=== PATIENT | male | born 1955 | race Caucasian/White ===

== ENCOUNTER 2021-01-26 23:37 | Inpatient (IN) | payer MEDICARE, OTHER ==
[~2021-01-26] VITALS: Ht 198.1 cm; Wt 93.9 kg
--- NOTE | 2021-01-27 00:19 | NUR ---
66 y/o male bib RA90 for generalized body aches/pain & dehydration. No medical hx & no home meds. Apparently a homeless man. A&Ox4. Calm and cooperative. Able to make needs known. No neurological deficits. PERRLA. No SI/HI/AH/VH. Desheveled appearance. Dry cough noted. Nsr + sinus tach. HR77 as of this note. BP 123/79 on arrival. No cp, no palpitations, no diaphoresis, no murmurs. No signs of edema. Pulses equal bilaterally. Febrile (99.7). Saturations >94% on room air as of this note. sob on exertion. no labored breathing. GI/: Continent. hypoactive bowel sounds. 7-8 episodes of emesis over the last couple days - previously constipatted but bowels have started moving again. LLQ pain + guarding. Loos of appetite. Complaints of urinary hesistency, dysuria, oliguria, and dark "wood" colored urine.
[2021-01-27 00:42] LABS: CREATININE 1.1 mg/dL (0.6-1.3); POTASSIUM 3.3 mmol/L (3.5-5.1)
--- NOTE | 2021-01-27 00:45 | NUR ---
Barber Quinn ([facility]) - [phone]
[2021-01-27 00:46] LABS: HEMATOCRIT 41.7 % (36.7-47.1); MEAN CORPUSCULAR HEMOGLOBIN 29.8 uug (23.8-33.4); PLATELET COUNT (AUTO) 182 K/uL (152-348)
[2021-01-27 00:48] LABS: BILIRUBIN,DIRECT 0.2 mg/dL (0.0-0.2); BILIRUBIN,TOTAL 0.7 mg/dL (0.2-1.0); TOTAL PROTEIN, SERUM 6.8 g/dL (6.4-8.2)
[2021-01-27] MEDS ORDERED: DEXAMETHASONE SOD PHOSPHATE 10 MG INJ ONE ×2 (00:59→01:03)
[2021-01-27] MEDS ORDERED: POTASSIUM BICARBONATE/CIT AC 25 MEQ TABLET.EFF ONE (01:00)
[2021-01-27] MEDS ORDERED: IV NS 1000 ML 1,000 ML IV ONE ×2 (01:00)
[2021-01-27] MEDS ORDERED: DEXAMETHASONE SOD PHOSPHATE 4 MG INJ IV ONE (01:00)
[2021-01-27] MEDS ORDERED: POTASSIUM BICARBONATE/CIT AC 25 MEQ TABLET.EFF PO ONE (01:00)
--- NOTE | 2021-01-27 01:19 | NUR ---
Call for bed - Room 316
--- NOTE | 2021-01-27 02:02 | NUR ---
Patient is COVID+ per Otis from lab
[2021-01-27 02:22] LABS: *BILIRUBIN,URIN 1+ (NEGATIVE); *BLOOD, URINE NEGATIVE (NEGATIVE); *CLARITY,URINE CLEAR (CLEAR); *COLOR,URINE AMBER (YELLOW); *KETONES,URINE TRACE (NEGATIVE); LEUKOCYTE ESTERASE ,URINE NEGATIVE (NEGATIVE); NITRITE, URINE NEGATIVE (NEGATIVE); PH,URINE 6.5 (5.0-8.0); UGLUCOSE NEGATIVE (NEGATIVE)
[2021-01-27 02:31] LABS: BACTERIA,URINE NONE SEEN /HPF (NONE SEEN); MUCUS,URINE MODERATE /LPF (0-FEW); RBC,URINE 0-3 /HPF (0-3); SQUAMOUS EPITHELIAL CELL,UR FEW /HPF (NONE SEEN); WBC,URINE 0-3 /HPF (0-3)
[2021-01-27] MEDS ORDERED: KETOROLAC TROMETHAMINE 30 MG INJ ONE (02:34)
--- NOTE | 2021-01-27 03:02 | NUR ---
Unable to give report at this time - 3rd floor will call back when ready
--- NOTE | 2021-01-27 04:30 | NUR ---
Pt. admitted to 316 telemetry, under care of Dr. Golden. Dx of Covid .On RA saturating @ 96-97%, No SOB noted, No s/s of distress noted. IV on left Forearm 18g patent and intact. Skin assessment done,No skin breakdown. patient resting comfortably in bed. Safety measures and Covid isolation maintained. Call light with in reach .Will continue to monitor. Belongs List completed and placed in chart.
[2021-01-27 05:06] VITALS: BP 98/64
--- NOTE | 2021-01-27 05:25 | NUR ---
Patient transferred up to TELE floor - Room 316 - Under the care of Mckenzie BENNETT & Dr. Olivier All belongings with patient. VSS. Report given.
[2021-01-27] MEDS ORDERED: KETOROLAC TROMETHAMINE 15 MG INJ IVP PRN (06:45)
[2021-01-27] MEDS ORDERED: ONDANSETRON 4 MG/2 ML VIAL IV PRN (06:45)
[2021-01-27] MEDS ORDERED: MAGNESIUM HYDROXIDE 30 ML LIQUID UDC PO PRN (06:45)
--- NOTE | 2021-01-27 07:00 | NUR ---
received patient in bed awake. HOB elevated, no complains of SOB, pain or discomfort at this time. patient saturation at 96% on room air at this time. IV patent and intact. call light and belongings within reach. safety precautions in place. will continue to monitor.
[2021-01-27] MEDS: AZITHROMYCIN IV 500 MG in IV DEXTROSE 5% 250 ML IV SCH (08:24)
[2021-01-27] MEDS: ENOXAPARIN SODIUM 40 MG/0.4 ML DISP.SYRIN SQ SCH (08:25)
[2021-01-27] MEDS: PANTOPRAZOLE SODIUM 40 MG TABLET.DR PO SCH (08:26)
[2021-01-27] MEDS: DEXAMETHASONE SOD PHOSPHATE 4 MG INJ IV SCH (08:26)
[2021-01-27] MEDS ORDERED: CHOLECALCIFEROL 1,000 UNIT TABLET PO SCH (09:00)
[2021-01-27] MEDS: POTASSIUM CHLORIDE 20 MEQ in IV NS 1000 ML 1,000 ML IV PRN ×2 (10:25→23:12)
[2021-01-27 12:00] VITALS: BP 97/69
[2021-01-27] MEDS ORDERED: CEFTRIAXONE 2 G in IV DEXTROSE 5% 100 ML IV SCH (13:00)
[2021-01-27] MEDS: CEFTRIAXONE 1 G in IV DEXTROSE 5% 50 ML IV SCH (13:29)
[2021-01-27 16:00] VITALS: BP 115/72
--- NOTE | 2021-01-27 18:25 | NUR ---
patient in bed in stable condition. no complains of any SOB, pain or discomfort at this time. call light within reach. IV intact and patent running KCL 20meq in NS @ 80ml/hr. call light and belongings kept within reach. safety precautions in place. will report to oncoming nurse.
[2021-01-27 20:00] VITALS: BP 116/76
--- NOTE | 2021-01-27 23:10 | NUR ---
Received pt resting in bed. AAO x4. On room air, no acute distress noted. Denies pain/ discomfort. IVF @ 80 cc/hr. Safety measures maintained. Call light within reach. Will continue to monitor.
[2021-01-28 00:04] VITALS: BP 116/72
[2021-01-28] MEDS: ACETAMINOPHEN 325 MG TABLET PO PRN ×3 (02:24→21:20)
[2021-01-28 04:00] VITALS: BP 92/65
[2021-01-28] MEDS: PANTOPRAZOLE SODIUM 40 MG TABLET.DR PO SCH (06:05)
[2021-01-28] MEDS: ENOXAPARIN SODIUM 40 MG/0.4 ML DISP.SYRIN SQ SCH (06:21)
[2021-01-28 06:43] LABS: HEMATOCRIT 35.4 % (36.7-47.1); MEAN CORPUSCULAR HEMOGLOBIN 30.4 uug (23.8-33.4); MEAN CORPUSCULAR VOLUME 87.7 fL (73.0-96.2); PLATELET COUNT (AUTO) 169 K/uL (152-348)
[2021-01-28 07:21] LABS: BILIRUBIN,TOTAL 0.4 mg/dL (0.2-1.0); CREATININE 1.1 mg/dL (0.6-1.3); MAGNESIUM 1.9 mg/dL (1.8-2.4); POTASSIUM 3.7 mmol/L (3.5-5.1); TOTAL PROTEIN, SERUM 5.4 g/dL (6.4-8.2)
--- NOTE | 2021-01-28 07:30 | NUR ---
Patient resting in bed. AOx4. On room air. No signs of acute distress. Patient denies pain/ discomfort at this time. Patient with left forearm #20 IV access with Kcl 20mEq running at 80cc/hr. Call light within reach. Will continue to monitor.
[2021-01-28] MEDS: AZITHROMYCIN IV 500 MG in IV DEXTROSE 5% 250 ML IV SCH (08:00)
[2021-01-28] MEDS: DEXAMETHASONE SOD PHOSPHATE 4 MG INJ IV SCH (08:23)
[2021-01-28] MEDS ORDERED: CHOLECALCIFEROL 1,000 UNIT TABLET PO SCH (09:00)
[2021-01-28 11:39] VITALS: BP 111/72
[2021-01-28] MEDS ORDERED: ALBUTEROL SULFATE 2.5 MG/3 ML NEBU NEB PRN (12:15)
[2021-01-28] MEDS ORDERED: IPRATROPIUM BROMIDE 0.5 MG/2.5 ML NEBU NEB PRN (12:15)
[2021-01-28] MEDS: CEFTRIAXONE 1 G in IV DEXTROSE 5% 50 ML IV SCH (13:58)
[2021-01-28] MEDS ORDERED: NEUTRA PHOS PACKET PO ONE (15:30)
[2021-01-28 15:54] VITALS: BP 114/74
--- NOTE | 2021-01-28 18:52 | NUR ---
Patient resting in bed. AOx4. On room air, saturating at 97%. No signs of acute distress. Patient denies pain/ discomfort at this time. Patient compliant with medications and care. Needs anticipated and provided. Safety measures provided. Will endorse to incoming shift for continuity of care.
[2021-01-28 20:00] VITALS: BP 113/70
--- NOTE | 2021-01-28 20:15 | NUR ---
Received patient asleep on bed. AOx4, able to make needs known. Saturating at 95% on room air. IV line on L forearm, flushed and still intact. Occasional non-productive coughing noted. Tylenol PRN given for headache. All needs attended. Safety measures provided. Call light placed within reach. Routine visual checks done. Will continue to monitor.
[2021-01-29] VITALS: BP 111/68
[2021-01-29 04:00] VITALS: BP 100/70
[2021-01-29] MEDS: PANTOPRAZOLE SODIUM 40 MG TABLET.DR PO SCH (06:02)
[2021-01-29] MEDS: ENOXAPARIN SODIUM 40 MG/0.4 ML DISP.SYRIN SQ SCH (06:02)
--- NOTE | 2021-01-29 06:41 | NUR ---
Patient slept throughout the night, easily arousable and able to make needs known. Saturating at 97% on room air. Denies pain and discomfort at this time. All needs attended. Safety measures provided. Call light placed within reach. Routine visual checks done. Will endorsed to next shift for continuity of care.
[2021-01-29] MEDS: ACETAMINOPHEN 325 MG TABLET PO PRN ×2 (06:59→22:44)
[2021-01-29 07:31] LABS: HEMATOCRIT 35.6 % (36.7-47.1); MEAN CORPUSCULAR HEMOGLOBIN 31.3 uug (23.8-33.4); MEAN CORPUSCULAR VOLUME 88.1 fL (73.0-96.2); PLATELET COUNT (AUTO) 191 K/uL (152-348)
[2021-01-29 07:44] LABS: CREATININE 0.9 mg/dL (0.6-1.3); PHOSPHOROUS 2.6 mg/dL (2.5-4.9); POTASSIUM 3.6 mmol/L (3.5-5.1)
[2021-01-29] MEDS ORDERED: AZITHROMYCIN 250 MG TABLET PO SCH (09:00)
[2021-01-29] MEDS: DEXAMETHASONE SOD PHOSPHATE 4 MG INJ IV SCH (09:38)
[2021-01-29] MEDS ORDERED: IPRATROPIUM/ALBUTEROL SULFATE 14.7 GM INHALER INH PRN (11:00)
[2021-01-29 12:00] VITALS: BP 113/60
[2021-01-29] MEDS: CEFTRIAXONE 1 G in IV DEXTROSE 5% 50 ML IV SCH (12:03)
[2021-01-29 16:25] VITALS: BP 132/81
--- NOTE | 2021-01-29 18:13 | NUR ---
End of Shift Note Patient no c/o of pain/discomfort noted. Patient ATB oral and IV discontinue by MICHELLE Wahl. Patient continue on room air, saturating 96%, not in distress. will continue monitor
--- NOTE | 2021-01-29 20:00 | NUR ---
RECEIVED PATIENT AWAKE IN BED. ON ISOLATION FOR COVID. A/O X4. DENIES ANY PAIN OR DISCOMFORT. NO RESP. DISTRESS NOTED. DENIES ANY SOB. VS WNL. AFEBRILE. ON TELE SR. H/L INTACT AND PATENT, NOTED TO LEFT FA #20 GAUGE. CALL LIGHT IN REACH. ALL NEEDS ATTENDED. WILL CONTINUE TO MONITOR AND ASSESS.
[2021-01-29 20:34] VITALS: BP 115/71
[2021-01-30 00:28] VITALS: BP 109/70
[2021-01-30 04:32] VITALS: BP 103/69
[2021-01-30] MEDS: PANTOPRAZOLE SODIUM 40 MG TABLET.DR PO SCH (06:24)
[2021-01-30] MEDS: ENOXAPARIN SODIUM 40 MG/0.4 ML DISP.SYRIN SQ SCH (06:24)
--- NOTE | 2021-01-30 06:48 | NUR ---
PATIENT SLEPT WELL. NO C/O PAIN. VSS. ON TELE SR. CALL LIGHT IN REACH. ALL NEEDS ATTENDED. WILL CONTINUE TO MONITOR AND ASSESS.
--- NOTE | 2021-01-30 07:00 | NUR ---
Received pt resting in bed. AAO x4. On room air, no acute distress noted. Denies pain/ discomfort. Call light within reach. Will continue to monitor.
[2021-01-30] MEDS: DEXAMETHASONE SOD PHOSPHATE 4 MG INJ IV SCH (08:02)
[2021-01-30 11:10] VITALS: BP 110/67
[2021-01-30 15:29] VITALS: BP 121/78
[2021-01-30 20:21] VITALS: BP 122/79
[2021-01-30] MEDS: ACETAMINOPHEN 325 MG TABLET PO PRN (21:01)
--- NOTE | 2021-01-30 21:41 | NUR ---
patient in bed in stable condition. no complains of any SOB, pain or discomfort at this time. call light within reach. IV intact and patent call light WITH IN REACH safety precautions in place. will CONTINUE TO MONITORS
[2021-01-30] MEDS: BENZOCAINE/MENTH/CETYLPYRD LOZENGE MM PRN (22:58)
[2021-01-30] MEDS: GUAIFENESIN/DEXTROMETHORPHAN 5 ML UDC PO PRN (22:59)
[2021-01-31 00:06] VITALS: BP 126/81
[2021-01-31 04:21] VITALS: BP 123/80
[2021-01-31] MEDS: PANTOPRAZOLE SODIUM 40 MG TABLET.DR PO SCH (06:10)
[2021-01-31] MEDS: ENOXAPARIN SODIUM 40 MG/0.4 ML DISP.SYRIN SQ SCH (06:11)
[2021-01-31 08:22] LABS: HEMATOCRIT 37.6 % (36.7-47.1); MEAN CORPUSCULAR HEMOGLOBIN 30.4 uug (23.8-33.4); MEAN CORPUSCULAR VOLUME 87.7 fL (73.0-96.2); PLATELET COUNT (AUTO) 287 K/uL (152-348)
--- NOTE | 2021-01-31 08:30 | NUR ---
Pt is in no acute distress. PT on R/A. 02 sat 95%. Encourage pt to use IS x 10 WA. Call light is within reach.
[2021-01-31 08:37] LABS: CREATININE 0.9 mg/dL (0.6-1.3); MAGNESIUM 2.3 mg/dL (1.8-2.4); PHOSPHOROUS 2.8 mg/dL (2.5-4.9); POTASSIUM 4.1 mmol/L (3.5-5.1)
[2021-01-31] MEDS: GUAIFENESIN/DEXTROMETHORPHAN 5 ML UDC PO PRN ×2 (08:48→19:50)
[2021-01-31] MEDS: DEXAMETHASONE SOD PHOSPHATE 4 MG INJ IV SCH (08:49)
[2021-01-31 12:00] VITALS: BP 116/74
[2021-01-31 16:00] VITALS: BP 115/77
--- NOTE | 2021-01-31 18:41 | NUR ---
Pt is in no acute distress. Call light is within reach.
[2021-01-31] MEDS: BENZOCAINE/MENTH/CETYLPYRD LOZENGE MM PRN (19:50)
[2021-01-31] MEDS: ACETAMINOPHEN 325 MG TABLET PO PRN (19:50)
[2021-01-31 20:25] VITALS: BP 123/79
[2021-02-01 00:15] VITALS: BP 103/79
[2021-02-01 04:25] VITALS: BP 117/73
[2021-02-01] MEDS: PANTOPRAZOLE SODIUM 40 MG TABLET.DR PO SCH (06:03)
[2021-02-01] MEDS: ENOXAPARIN SODIUM 40 MG/0.4 ML DISP.SYRIN SQ SCH (06:04)
--- NOTE | 2021-02-01 06:23 | NUR ---
pt resting in bed. AAO x4. On room air, no acute distress noted. Denies pain/ discomfort Safety measures maintained. Call light within reach. Will continue to monitor.
[2021-02-01] MEDS: DEXAMETHASONE SOD PHOSPHATE 4 MG INJ IV SCH (08:19)
[2021-02-01 11:48] VITALS: BP 112/70
--- NOTE | 2021-02-01 12:21 | NUR ---
Improvement Specialist Consultation: Improvement Specialist consultation requested for homelessness. Patient is a 65 year old male who was hospitalized on 01/27/2021 due to COVID. Due to isolation precautions, this LAUNCH LEADER completed this consultation by telephone. Patient is awake, alert, oriented, cooperative and receptive to speaking with this LAUNCH LEADER. Patient stated that he was a live-in woker at [facility] rehab facility in [place], but was let go and asked to move out after testing positive for COVID. Patient stated he has been homeless for about 2 weeks. Patient has a son, Barber Quinn, , and patient stated that Barber is aware of patient's current hospitalization. This LAUNCH LEADER assessed patient's needs for community resources, and patient stated he was not sure where he was going to live. This LAUNCH LEADER informed the patient that case management has found placement for him at [facility], [address] [place] [id number], . Patient expressed being in agreement with this DC plan. This LAUNCH LEADER offered patient community resources for the homeless, and patient was in agreement. Patient also stated that he has lost both his Medicare and Medi-yfn cards, and this LAUNCH LEADER stated that this LAUNCH LEADER will provide patient with contact information to both Medicare and Medi-yfn in order for him to re-order his cards. Patient expressed agreement. manager books Mindy informed that patient is in agreement with DC plan. This LAUNCH LEADER placed the following resources in patient's DC packet folder, and SABRINA Mao was informed: Medicare to replace lost/stolen card [facility] - [facility]; [address] [place] [address], , to replace lost/stolen medi-yfn card. a list of year round shelters [facility] [place] [address], ; [facility] [place] [address] [facility], ; and [facility] [place] [address] [facility], ; [facility], ; [facility], [address], [address], ; [facility], [address] [facility], [address], ; [facility], [facility], [address] [place] [address], [address], ; [facility], [address] [place] [address], ; [facility], [facility], [address] [place] [address], ; [facility], [address] [place] [address], [address], . The [facility] homeless directory which provides a list of places that individuals can go to throughout the week for hot meals, sack lunches, food pantries, and showers; a list of mental health clinics: [facility] [address] [place] [address], ; [facility] [address] [place] [address], ; [facility] [address] [place] [address], ; a list of medical clinics: [facility] [address] [facility] [address], [place]. [place], ; [facility] [address] [facility], [facility] [place] [address]; [facility] [address] [place] [address], . also provided patient with information on locations of pharmacies.
[2021-02-01 15:52] VITALS: BP 103/72
--- NOTE | 2021-02-01 17:41 | NUR ---
dc orders received noted and carried out.dc instruction and rn report given to the correction dc heplock per md orders,pt left the facility via ambulances in stable condition
== END 2021-02-01 17:45 | DRG 177 ==
LOC: ER 23:40 → TELE3 01-27 03:05
PROVIDERS: ADMIT Hospitalist; ATTEND Hospitalist
DX: U07.1 COVID-19 (principal); J12.82 Pneumonia due to coronavirus disease 2019; J18.9 Pneumonia, unspecified organism; E87.1 Hypo-osmolality and hyponatremia; N17.9 Acute kidney failure, unspecified; E86.0 Dehydration; E87.6 Hypokalemia; Z87.891 Personal history of nicotine dependence; Z59.0 Homelessness; Z98.890 Other specified postprocedural states; J40 Bronchitis, not specified as acute or chronic
CPT/HCPCS: 36415; 70030-TC; 71045; 83605; 83615; 83735; 84100; 85025; 86140; 87040; 87070; 93005; 97161; A4663; G0378; J0456; J0696; J1100; J1650; J1885; J3480; J7030; J7040; J7060; Q0144